=== PATIENT | female | born 1980 | race Asian ===

== ENCOUNTER 2016-10-13 16:16 | Emergency (ER) | payer OTHER ==
[2016-10-13] MEDS ORDERED: LIDOCAINE 2%-EPI 1:100000 20 ML MDV SUBQ STA (18:48)
[2016-10-13] MEDS ORDERED: LIDOCAINE 2%-EPI 1:100000 20 ML MDV ONE (19:03)
[2016-10-13] MEDS ORDERED: SULFAMETH/TRIMETH DS 800/160 MG TABLET PO STA (19:32)
--- NOTE | 2016-10-13 19:34 | ED Physician Documentation ---
History of Present Illness - Stated complaint Stated Complaint: CYST/BELLY BUTTON - Chief complaint Chief Complaint: Abd Pain - History obtained from History obtained from: Patient - History of Present Illness Timing: Today Pain level max: 4 Pain level now: 4 Improved by: nothing Worsened by: nothing - Additonal information Additional information: umbilicus swelling, redness. fluctuance. Review of Systems Constitutional: denies: Fever, Chills Musculoskeletal: denies: Neck pain, Back pain Neurologic: denies: Headache PD PAST MEDICAL HISTORY - Past Medical History Past Medical History: No - Past Surgical History Past Surgical History: Yes - Present Medications Home Medications: Ambulatory Orders Medication Instructions Recorded Confirmed Sulfamethox/Trimeth 800/160 1 each PO BID #14 tablet 10/13/16 [Bactrim Ds 800/160] - Allergies Allergies/Adverse Reactions: Allergies Allergy/AdvReac Type Severity Reaction Status Date / Time No Known Drug Allergies Allergy Verified 10/13/16 16:24 - Social History Does the pt smoke?: No Smoking Status: Never smoker PD ED PE NORMAL - Vitals Vital signs reviewed: Yes - General General: Alert and oriented X 3, No acute distress - Cardiac Cardiac: RRR - Respiratory Respiratory: No respiratory distress, Clear bilaterally - Abdomen Abdomen: Soft, Non distended, Other (induration, fluctuance 3x2cm area. NVI) - Derm Derm: Warm and dry - Neuro Neuro: Alert and oriented X 3 - Psych Psych: Normal mood, Normal affect Results - Vitals Vitals: Vital Signs - 24 hr 10/13/16 10/13/16 16:21 19:40 Temperature 36.7 C 36.5 C Heart Rate 73 66 Respiratory 18 18 Rate Blood Pressure 124/82 H 121/73 O2 Saturation 98 98 Oxygen O2 Source Room air - Labs Labs: Microbiology 10/13/16 19:30 Wound Culture - Preliminary Abscess Procedures - Abscess I&D (location) umbilicus Preparation: Confirmed with ultrasound, Lidocaine 2 %, With epi Incision: Incised with scalpel, Needle aspiration, Purulent drainage, Loculations broken, Irrigated, Packed, Culture obtained Other: Pt tolerated well PD MEDICAL DECISION MAKING - ED course Complexity details: reviewed results, re-evaluated patient, considered differential, d/w patient ED course: Patient is a 35-year-old female who presents to the emergency department with an umbilical abscess, this was drained in the emergency department and packed. Wound culture obtained. Will place on antibiotics and follow-up with her doctor. Patient counseled regarding signs and symptoms for which I believe and urgent re-evaluation would be necessary. Patient with good understanding of and agreement to plan and is comfortable going home at this time This document was made in part using voice recognition software. While efforts are made to proofread this document, sound alike and grammatical errors may occur. Departure - Departure Disposition: 01 Home, Self Care Clinical Impression: Abscess Condition: Good Instructions: ED Abscess IandD Follow-Up: Leoncio Gandhi MD [Primary Care Provider] - Within 3 Days Prescriptions: Sulfamethox/Trimeth 800/160 [Bactrim Ds 800/160] 1 each PO BID #14 tablet Comments: for recheck of your abscess. Take all antibiotics until gone. Discharge Date/Time: 10/13/16 19:51
[2016-10-13] MEDS ORDERED: SULFAMETH/TRIMETH DS 800/160 MG TABLET PO ONE (19:38)
[2016-10-13 19:40] VITALS: BP 121/73
== END 2016-10-13 19:51 | disposition home or self-care (01) ==
LOC: ED 16:16
DX: L02.216 Cutaneous abscess of umbilicus (principal)
CPT/HCPCS: 10060; 87070; 87205; 99283; A9270

== ENCOUNTER 2016-11-06 19:32 | Emergency (ER) | payer OTHER ==
--- NOTE | 2016-11-06 19:58 | ED Physician Documentation ---
PD HPI MHE - Stated complaint Stated Complaint: SI - Chief complaint Chief Complaint: MHE - History obtained from History obtained from: Patient - History of Present Illness Primary symptom: Suicidal ideation, Depression Timing - onset: How many weeks ago (she has been feeling more depressed for the past 2-3 weeks, with some suicidal ideation. Had stressful verbal interaction this morning and was more upset/ suicidal during the day today. This afternoon she thought of cutting her wrists and was to the point of having the knife pressed against her wrist, but says the "blade was too dull". Denies drugs, but did have 2 drinks of alcohol earlier today.) Contributing factors: Sig other, Work. No: Substance abuse - ETOH (infrequent alcohol use but has been more regular with drinking the past few weeks.), Substance abuse - drugs Similar symptoms before: Diagnosis (depression with overdose suicide attempt about 8-9 years ago, requiring medical hospitalization. Previously on antidepressants, not recent. 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 denies: Delusions, Anxiety Endocrine: denies: Weight loss (but has had poor appetite the past few weeks.) Immunocompromised: denies: Immunocompromised PD PAST MEDICAL HISTORY - Past Medical History Cardiovascular: None Respiratory: None Neuro: None Endocrine/Autoimmune: None - Past Surgical History Past Surgical History: Yes - Allergies Allergies/Adverse Reactions: Allergies Allergy/AdvReac Type Severity Reaction Status Date / Time No Known Drug Allergies Allergy Verified 10/13/16 16:24 - Living Situation Living Arrangement: reports: At home - Social History Does the pt smoke?: No Smoking Status: Never smoker Does the pt drink ETOH?: Yes ETOH Use: Other (recently for the past few weeks) Does the pt have substance abuse?: No - Family History Family history: reports: Non contributory PD ED PE NORMAL - Vitals Vital signs reviewed: Yes - General General: Alert and oriented X 3, Well developed/nourished, Other (conversant; a bit reluctant to talk about the recent stresses. ) - HEENT HEENT: Atraumatic, Pharynx benign - Neck Neck: Supple, no meningeal sign, No adenopathy, Thyroid normal - Cardiac Cardiac: RRR, No murmur - Respiratory Respiratory: Clear bilaterally - Abdomen Abdomen: Soft, Non tender - Back Back: No CVA TTP - Derm Derm: Normal color, Warm and dry - Extremities Extremities: No tenderness to palpate, Normal ROM s pain - Neuro Neuro: Alert and oriented X 3, No motor deficit, Normal speech - Psych Psych: No: Normal mood (depressed and somewhat flat) Results - Vitals Vitals: Vital Signs - 24 hr 11/06/16 11/06/16 19:34 21:17 Temperature 36.6 C Heart Rate 93 65 Respiratory 18 15 Rate Blood Pressure 147/80 H 141/86 H O2 Saturation 99 97 Oxygen O2 Source Room air - Labs Labs: Laboratory Tests 11/06/16 11/06/16 11/06/16 20:24 20:24 20:24 WBC 8.9 RBC 4.42 Hgb 12.9 Hct 38.1 MCV 86.3 MCH 29.2 MCHC 33.9 RDW 13.1 Plt Count 240 MPV 9.4 Neut # 6.1 Lymph # 1.9 O'Brien # 0.8 Eos # 0.1 Baso # 0.1 Absolute Nucleated RBC 0.00 Nucleated RBCs 0.0 Sodium 138 Potassium 3.7 Chloride 106 Carbon Dioxide 24 Anion Gap 8.0 BUN 11 Creatinine 0.7 Estimated GFR (MDRD) 96 Glucose 105 H Calcium 9.3 Total Bilirubin 0.6 AST 23 ALT 19 Alkaline Phosphatase 72 Total Protein 7.5 Albumin 4.3 Globulin 3.2 Albumin/Globulin Ratio 1.3 Lipase 19 L TSH 0.74 Salicylates < 6.0 Acetaminophen < 10 L Ethyl Alcohol < 5.0 PD MEDICAL DECISION MAKING - ED course Complexity details: re-evaluated patient (I feel the patient may be at risk for self harm, and she is willing for voluntary admission for initiating treatment. Has counseling planned for next week but is in stress/depressed currently. Not clearly able to contract for safety, feeling unsure of it. I feel hospitalization is appropriate. ), considered differential (she is feeling depressed and has suicidal ideation/plan. She is concerned about her impulse control. ), d/w patient, d/w income tax consultant (Case, psychiatry at [facility], who accepts transfer. ) Departure - Departure Clinical Impression: Suicidal ideation Depression Qualifiers: Depression Type: unspecified Qualified Code(s): F32.9 - Major depressive disorder, single episode, unspecified Condition: Stable Record reviewed to determine appropriate education?: Yes
[2016-11-06 20:30] LABS: BASOPHILS # (AUTO) 0.1 10^3/uL (0.0-0.1); BASOPHILS % (AUTO) 1.2 %; EOSINOPHILS # (AUTO) 0.1 10^3/uL (0.0-0.7); EOSINOPHILS % (AUTO) 0.8 %; HCT - HEMATOCRIT 38.1 % (37.0-47.0); HGB - HEMOGLOBIN 12.9 g/dL (12.0-16.0); LYMPHOCYTES # (AUTO) 1.9 10^3/uL (1.5-3.5); LYMPHOCYTES % (AUTO) 21.4 %; MEAN CORPUSCULAR HEMOGLOBIN 29.2 pg (27.0-31.0); MEAN CORPUSCULAR HGB CONC 33.9 g/dL (32.0-36.0); MEAN CORPUSCULAR VOLUME 86.3 fL (81.0-99.0); MEAN PLATELET VOLUME 9.4 fL (7.9-10.8); MONOCYTES # (AUTO) 0.8 10^3/uL (0.0-1.0); MONOCYTES % (AUTO) 8.7 %; NEUTROPHILS # (AUTO) 6.1 10^3/uL (1.5-6.6); NEUTROPHILS % (AUTO) 67.9 %; RED BLOOD COUNT 4.42 10^6/uL (4.20-5.40); RED CELL DISTRIBUTION WIDTH 13.1 % (12.0-15.0); UNCORRECTED WHITE BLOOD COUNT 8.9 x10^3/uL; WHITE BLOOD COUNT 8.9 x10^3/uL (4.8-10.8)
[2016-11-06 20:44] LABS: ALBUMIN/GLOBULIN RATIO 1.3 (1.0-2.2); BILIRUBIN,TOTAL 0.6 mg/dL (0.2-1.0); BUN - BLOOD UREA NITROGEN 11 mg/dL (6-20); CALCIUM 9.3 mg/dL (8.5-10.3); CARBON DIOXIDE - CO2 24 mmol/L (21-32); CHLORIDE 106 mmol/L (101-111); CREATININE 0.7 mg/dL (0.4-1.0); GFR - MDRD 96 (>89); GLUCOSE 105 mg/dL (70-100); LIPASE 19 U/L (22-51); POTASSIUM 3.7 mmol/L (3.5-5.0); SALICYLATE < 6.0 mg/dL; SODIUM 138 mmol/L (135-145); TOTAL PROTEIN 7.5 g/dL (6.7-8.2)
[2016-11-06 21:02] LABS: ACETAMINOPHEN < 10 ug/mL (10-30)
[2016-11-06 23:06] VITALS: BP 129/79
== END 2016-11-06 23:05 ==
LOC: ED 19:32
DX: F32.9 Major depressive disorder, single episode, unspecified (principal); R45.851 Suicidal ideations
CPT/HCPCS: 36415; 80053; 80307; 80320; 80329; 83690; 84443; 85025; 99283; 99284

== ENCOUNTER 2017-05-16 16:10 | Emergency (ER) | payer OTHER ==
[2017-05-16 16:56] LABS: ALBUMIN 4.4 g/dL (3.2-5.5); ALBUMIN/GLOBULIN RATIO 1.2 (1.0-2.2); ALKALINE PHOSPHATASE 70 IU/L (42-121); ALT ALANINE AMINOTRANSFERASE 26 IU/L (10-60); AST ASPARTATE AMINOTRANSFERASE 27 IU/L (10-42); BILIRUBIN,TOTAL 0.7 mg/dL (0.2-1.0); BUN - BLOOD UREA NITROGEN 9 mg/dL (6-20); CALCIUM 9.4 mg/dL (8.5-10.3); CARBON DIOXIDE - CO2 22 mmol/L (21-32); CHLORIDE 104 mmol/L (101-111); CREATININE 0.7 mg/dL (0.4-1.0); GFR - MDRD 96 (>89); GLUCOSE 93 mg/dL (70-100); LIPASE 18 U/L (22-51); SODIUM 137 mmol/L (135-145); TOTAL PROTEIN 8.1 g/dL (6.7-8.2)
[2017-05-16 16:59] LABS: ACETAMINOPHEN < 10 ug/mL (10-30); SALICYLATE < 6.0 mg/dL
[2017-05-16 17:30] LABS: MUDS CUTOFF CONCENTRATIONS CUTOFF CONC BELOW:
[2017-05-16 17:42] LABS: COCAINE SCREEN URINE NEGATIVE (NEGATIVE); METHAMPHETAMINES SCREEN, URINE NEGATIVE (NEGATIVE)
[2017-05-16 17:43] LABS: AMPHETAMINE SCREEN,URINE NEGATIVE (NEGATIVE); BENZODIAZEPINES SCREEN, URINE NEGATIVE (NEGATIVE); METHADONE SCREEN, URINE NEGATIVE (NEGATIVE); OPIATE SCREEN, URINE NEGATIVE (NEGATIVE); OXYCODONE SCREEN, URINE NEGATIVE (NEGATIVE); PROPOXYPHENE SCREEN, URINE NEGATIVE (NEGATIVE); TRICYCLIC ANTIDEPRESSANT,URINE NEGATIVE (NEGATIVE)
[2017-05-16 19:21] VITALS: BP 118/98
--- NOTE | 2017-05-16 19:49 | ED Physician Documentation ---
PD HPI MHE - Stated complaint Stated Complaint: SI - Chief complaint Chief Complaint: MHE - History obtained from History obtained from: Patient - History of Present Illness Primary symptom: Suicidal ideation (she got upset about some stress at work and started yelling and feeling very anxious. Was brought to counseling and was feeling calmer. She was talking with a friend after and was feeling very embarrassed about it and said to the effect of "I wish I were " but patient says it was more with regard to feeling very embarassed and was not feeling suicidal per se. Her friend notified the Chief, and patient brought here for evaluation (counseling services were closing). Patient says she does not feel suicidal per se and not at this time. Not feeling anxious right now.), Anxiety. No: Suicide attempt Timing - onset: Today Contributing factors: Work. No: Substance abuse - ETOH, Substance abuse - drugs Similar symptoms before: Has not had sx before (vague suicidal ideation in the past. Anxiety reactions in the past. No deep depression.) Review of Systems Constitutional: denies: Fever Nose: denies: Rhinorrhea / runny nose, Congestion Throat: denies: Sore throat Cardiac: denies: Chest pain / pressure, Palpitations Respiratory: denies: Dyspnea, Cough GI: denies: Abdominal Pain, Nausea, Vomiting, Diarrhea Skin: denies: Rash, Lesions PD PAST MEDICAL HISTORY - Past Medical History Cardiovascular: None Respiratory: None Neuro: None Endocrine/Autoimmune: None Psych: Depression - Past Surgical History Past Surgical History: Yes - Present Medications Home Medications: Ambulatory Orders Medication Instructions Recorded Confirmed Multivitamin [Multivitamins] 1 each PO DAILY 05/16/17 05/16/17 diphenhydrAMINE [Benadryl] 25 - 50 mg PO QPM PRN #30 capsule 05/16/17 - Allergies Allergies/Adverse Reactions: Allergies Allergy/AdvReac Type Severity Reaction Status Date / Time No Known Drug Allergies Allergy Verified 05/16/17 16:21 - Social History Does the pt smoke?: No Smoking Status: Never smoker Does the pt drink ETOH?: Yes Does the pt have substance abuse?: No - Immunizations Immunizations are current?: Yes - POLST Patient has POLST: No PD ED PE NORMAL - Vitals Vital signs reviewed: Yes - General General: Alert and oriented X 3, Well developed/nourished, Other (seems slightly anxious but quite pleasant and interactions well. ) - Cardiac Cardiac: RRR, No murmur - Respiratory Respiratory: Clear bilaterally - Derm Derm: Normal color, Warm and dry - Neuro Neuro: Alert and oriented X 3, No motor deficit, Normal speech - Psych Psych: Normal affect. No: Normal mood (not seeming depressed. Slightly anxious. ) Results - Vitals Vitals: Oxygen O2 Source Room air - Labs Labs: Laboratory Tests 05/16/17 05/16/17 16:35 Unknown Sodium 137 Potassium 3.9 Chloride 104 Carbon Dioxide 22 Anion Gap 11.0 BUN 9 Creatinine 0.7 Estimated GFR (MDRD) 96 Glucose 93 Calcium 9.4 Total Bilirubin 0.7 AST 27 ALT 26 Alkaline Phosphatase 70 Total Protein 8.1 Albumin 4.4 Globulin 3.7 Albumin/Globulin Ratio 1.2 Lipase 18 L Salicylates < 6.0 Urine Opiates Screen NEGATIVE Ur Oxycodone Screen NEGATIVE Urine Methadone Screen NEGATIVE Ur Propoxyphene Screen NEGATIVE Acetaminophen < 10 L Ur Barbiturates Screen NEGATIVE Ur Tricyclics Screen NEGATIVE Ur Phencyclidine Scrn NEGATIVE Ur Amphetamine Screen NEGATIVE U Methamphetamines Scrn NEGATIVE U Benzodiazepines Scrn NEGATIVE Urine Cocaine Screen NEGATIVE U Cannabinoids Screen NEGATIVE Ethyl Alcohol < 5.0 PD MEDICAL DECISION MAKING - ED course Complexity details: considered differential (here with her Chief and she says she did not mean the statement about wanting to be , was more of a stress comment to the "feeling ahsamed" about the incident. Denies suicidal ideation. Her chief says the patient will be staying with a friend monico and they have counseling planned again in the morning. ), d/w patient Departure - Departure Disposition: 01 Home, Self Care Clinical Impression: Stress reaction, Suicidal ideation Condition: Stable Record reviewed to determine appropriate education?: Yes Prescriptions: diphenhydrAMINE [Benadryl] 25 - 50 mg PO QPM PRN #30 capsule PRN Reason: Insomnia Comments: Drink lots of fluids. No alcohol use. Benadryl 25-50 mg at night if needed for sleep. He could also try melatonin 3 mg at night for sleep as well. Follow -up with counseling in the morning. Call the crisis line overnight if you need to talk to someone. Return as needed. Discharge Date/Time: 05/16/17 20:22
[2017-05-16] MEDS ORDERED: diphenhydrAMINE 25 MG CAPSULE PO STA (20:12)
== END 2017-05-16 20:22 | disposition home or self-care (01) ==
LOC: ED 16:10
DX: F43.9 Reaction to severe stress, unspecified (principal); R45.851 Suicidal ideations
CPT/HCPCS: 36415; 80053; 80306; 80307; 80320; 80329; 83690; 99283; A9270

== ENCOUNTER 2017-10-01 08:33 | Emergency (ER) | payer OTHER ==
--- NOTE | 2017-10-01 09:30 | ED Physician Documentation ---
PD HPI SKIN - Stated complaint Stated Complaint: ABD PX - Chief complaint Chief Complaint: Wound - History obtained from History obtained from: Patient PD PAST MEDICAL HISTORY - Past Medical History Past Medical History: Yes Cardiovascular: None Respiratory: None Endocrine/Autoimmune: None Psych: Depression - Past Surgical History Past Surgical History: Yes - Present Medications Home Medications: Ambulatory Orders Medication Instructions Recorded Confirmed Multivitamin [Multivitamins] 1 each PO DAILY 05/16/17 05/16/17 diphenhydrAMINE [Benadryl] 25 - 50 mg PO QPM PRN #30 capsule 05/16/17 Mupirocin 1 applic TP TID #15 oint...g. 10/01/17 Sulfamethox/Trimeth 800/160 1 each PO BID #14 tablet 10/01/17 [Bactrim Ds 800/160] - Allergies Allergies/Adverse Reactions: Allergies Allergy/AdvReac Type Severity Reaction Status Date / Time No Known Drug Allergies Allergy Verified 05/16/17 16:21 - Social History Does the pt smoke?: No Smoking Status: Never smoker Does the pt drink ETOH?: Yes Does the pt have substance abuse?: No - Immunizations Immunizations are current?: Yes - POLST Patient has POLST: No Results - Vitals Vitals: Oxygen O2 Source Room air - Labs Labs: Microbiology 10/01/17 09:30 Wound Culture - Preliminary Abscess PD MEDICAL DECISION MAKING - ED course Complexity details: considered differential (given the recurrence in same site, I think the cyst/scar of it would best be excised after the infection is gone.) , d/w patient - Sepsis Event Vital Signs: Oxygen O2 Source Room air Departure - Departure Disposition: 01 Home, Self Care Clinical Impression: Abscess of umbilicus Condition: Stable Record reviewed to determine appropriate education?: Yes Instructions: ED Staph Infec Abx Tx Only Follow-Up: IMER HORTON DO [Primary Care Provider] - David Killian MD [Provider Admit Priv/Credential] - Prescriptions: Mupirocin 1 applic TP TID #15 oint...g. Sulfamethox/Trimeth 800/160 [Bactrim Ds 800/160] 1 each PO BID #14 tablet Comments: This sounds like a recurring abscess likely because of the scar tissue left from the initial infection. Will treat the current infection with antibiotics orally and topically. Presume with this will clear it again for now. When you see Dr. Killian in the office next week, he might want to excise the scar tissue in that area so there is not a hiding place for the germs to come out recurrently. See what he thinks. Discharge Date/Time: 10/01/17 10:13
[2017-10-01] MEDS ORDERED: SULFAMETH/TRIMETH DS 800/160 MG TABLET PO STA (09:50)
[2017-10-01 10:14] VITALS: BP 117/76
== END 2017-10-01 10:13 | disposition home or self-care (01) ==
LOC: ED 08:33
DX: L02.216 Cutaneous abscess of umbilicus (principal)
CPT/HCPCS: 87070; 87205; 99283; A9270; 81599

== ENCOUNTER 2017-10-18 10:25 | Day surgery (SDC) | payer OTHER ==
[~2017-10-18 10:25] MED LIST: BUPIVACAINE 0.5% PF 30 ML VIAL ONE
[2017-10-18] MEDS ORDERED: ceFAZolin 2 GM/50 ML 2 GM/50 ML BAG IV ONE (10:47)
[2017-10-18] MEDS ORDERED: LACTATED RINGERS 1,000 ML IV ONE ×2 (10:49→14:44)
[2017-10-18 11:59] LABS: HCG UR QUAL NEGATIVE
--- NOTE | 2017-10-18 13:42 | ANESTHESIA ---
Pre-Anesthesia VS, & Labs - Diagnosis Umbilical hernia, chronic umbilical wound - Procedure Umbilical hernia repair, excise chronic umbilical cyst Vital Signs: Temp Pulse Resp BP Pulse Ox 36.2 C L 16 121/68 98 10/18/17 10:49 10/18/17 10:49 10/18/17 10:49 10/18/17 10:49 Height 5 ft 4 in Weight (kg) 84.4 kg Body Mass Index 29.2 - NPO >8 hours - Is Patient ?: No Home Medications and Allergies Home Medications: Ambulatory Orders Medication Instructions Recorded Confirmed Multivitamin [Multivitamins] 1 each PO DAILY 05/16/17 05/16/17 diphenhydrAMINE [Benadryl] 25 - 50 mg PO QPM PRN #30 capsule 05/16/17 Mupirocin 1 applic TP TID #15 oint...g. 10/01/17 Sulfamethox/Trimeth 800/160 1 each PO BID #14 tablet 10/01/17 [Bactrim Ds 800/160] Sertraline HCl [Zoloft] 150 cap ORAL DAILY 10/18/17 10/18/17 Allergies/Adverse Reactions: Allergies Allergy/AdvReac Type Severity Reaction Status Date / Time No Known Drug Allergies Allergy Verified 05/16/17 16:21 Anes History & Medical History - Anesthetic History Anesthesia Complications: reports: Post-Operative Nausea/Vomiting Family history of Malignant Hyperthermia: Denies - Airway/Dental Dental: WNL Neck Mobility: Normal Mallampati classification: II Thyromental Distance: greater than 6 cm - Medical History Cardiovascular: reports: None Pulmonary: reports: None Gastrointestinal: reports: None, GERD Urinary: reports: None Neuro: reports: Motion sickness, Other (Depression) Musculoskeletal: reports: None Endocrine/Autoimmune: reports: None Skin: reports: None Smoking Status: Never smoker Psychosocial: reports: Depression - Surgical History General: Other (Abdominalplasty, liposuction, umbilical hernia repair) Exam General: Alert, Oriented x3 Respiratory: Lungs clear Cardiovascular: Regular rate Mental/Cognitive Status: Alert/Oriented X3 Plan Anesthesia Type: General Consent for Operative Procedure(s) Verified and Reviewed: Yes Code Status: Attempt Resuscitation ASA classification: 2-Mild systemic disease Is this case an emergency?: No
--- NOTE | 2017-10-18 13:43 | ANESTHESIA ---
Pre-Anesthesia VS, & Labs - Diagnosis umbilical hernia, chronic umbilical wound - Procedure Umbilical hernia repair, excise chronic umbilical infection Vital Signs: Temp Pulse Resp BP Pulse Ox 36.2 C L 16 121/68 98 10/18/17 10:49 10/18/17 10:49 10/18/17 10:49 10/18/17 10:49 Height 5 ft 4 in Weight (kg) 84.4 kg Body Mass Index 29.2 - Is Patient ?: No - Lab Results Lab results reviewed: No Home Medications and Allergies Home Medications: Ambulatory Orders Medication Instructions Recorded Confirmed Multivitamin [Multivitamins] 1 each PO DAILY 05/16/17 05/16/17 diphenhydrAMINE [Benadryl] 25 - 50 mg PO QPM PRN #30 capsule 05/16/17 Mupirocin 1 applic TP TID #15 oint...g. 10/01/17 Sulfamethox/Trimeth 800/160 1 each PO BID #14 tablet 10/01/17 [Bactrim Ds 800/160] Sertraline HCl [Zoloft] 150 cap ORAL DAILY 10/18/17 10/18/17 Allergies/Adverse Reactions: Allergies Allergy/AdvReac Type Severity Reaction Status Date / Time No Known Drug Allergies Allergy Verified 05/16/17 16:21 Anes History & Medical History - Anesthetic History Anesthesia Complications: reports: No previous complications Family history of Anesthesia Complications: Denies Family history of Malignant Hyperthermia: Denies - Airway/Dental Dental: WNL Neck Mobility: Normal Mallampati classification: II Thyromental Distance: greater than 6 cm - Medical History Cardiovascular: reports: None Pulmonary: reports: None Gastrointestinal: reports: None Urinary: reports: None Neuro: reports: None Musculoskeletal: reports: None Endocrine/Autoimmune: reports: None Blood Disorders: reports: None Skin: reports: None Smoking Status: Never smoker Psychosocial: reports: Depression Exam General: Oriented x3 Respiratory: Lungs clear, Normal breath sounds Cardiovascular: Regular rate Extremities: No clubbing, No edema Neurological: Normal speech Mental/Cognitive Status: Alert/Oriented X3 Cognitive Status: Within normal limits Plan Anesthesia Type: General Consent for Operative Procedure(s) Verified and Reviewed: Yes Code Status: Attempt Resuscitation ASA classification: 2-Mild systemic disease Is this case an emergency?: No
[2017-10-18] MEDS ORDERED: SCOPOLAMINE PATCH TOP ONE (13:49)
[2017-10-18] MEDS ORDERED: BUPIVACAINE 0.5% PF 30 ML VIAL INFIL ONE ×2 (14:41)
[2017-10-18] MEDS ORDERED: PROPOFOL 200 MG/20 ML VIAL IVP ONE (15:20)
[2017-10-18] MEDS ORDERED: MIDAZOLAM 2 MG/2 ML VIAL IVP ONE (15:20)
[2017-10-18] MEDS ORDERED: KETOROLAC 30 MG/ML VIAL IVP ONE (15:20)
[2017-10-18] MEDS ORDERED: LIDOCAINE-MPF 2% 5 ML VIAL IM ONE (15:20)
[2017-10-18] MEDS ORDERED: DEXAMETHASONE 4 MG/ML VIAL IVP ONE (15:20)
[2017-10-18] MEDS ORDERED: fentaNYL 100 MCG/2 ML VIAL IVP ONE (15:20)
[2017-10-18] MEDS ORDERED: ONDANSETRON 4 MG/2 ML VIAL IVP ONE (15:20)
--- NOTE | 2017-10-18 15:47 | OPERATIVE REPORT ---
Operative Report - General Planned Procedure: Excision umbilical cyst and umbilical herniorrhaphy Pre-Op Diagnosis: Umbilical cyst and umbilical hernia Procedure Performed: Excision umbilical abscess and umbilical herniorrhaphy Post Op Diagnosis: Umbilical abscess and umbilical hernia - Procedure Note Primary Surgeon: David Killian MD Anesthesia Provider: Sina Rubi CRNA Anesthesia Technique: General LMA, Local (30 mL 1/2% marcaine) IV Fluids (mL): 400 Estimated Blood Loss (mL): 10 Complications: None. - Other Other Information/Narrative: OPERATIVE DESCRIPTION/REPORT: After verbal and written informed consent was obtained detailing the risks of infection, bleeding requiring transfusion with its risks, nerve injury, and , and after I met with the patient confirming the surgery and the site of the surgery, the patient was brought to the operative suite and placed supine on the operating table. Great care was taken to avoid pressure points to prevent pressure necrosis or nerve injury. Monitoring devices were applied along with TEDs and pneumatic compressive stockings (to prevent DVT). The patient received preoperative antibiotics for surgical prophylaxis. Sina Rubi CRNA sedated and anethetized the patient for the entire procedure. The patient was prepped and draped in the usual sterile manner. With the patient draped my initials were clearly visible. A "time in" then confirmed that the paitient was identified with 3 identifiers (name, birthdate and medical record number), the history and physical was in the chart, the signed consent confirming the procedure was in the chart, the patient was in the correct position, the aforementioned prophylactic measures were in place or given, we had the correct personel and equipment to complete the procedure and that anesthesia, surgery and nursing were given an opportunuty to express any concerns. With the agreement of everyone in the room, we proceeded with the operation. After injecting the area with 1/2% marcaine, an elliptical incision was made using a 15 blade scalpel in order to excise the anticipated cyst. This also was able to keep well clear of the draining site at the midpoint of her umbilicus. This incision was then taken down to the fascial defect with Bovie electrocautery taking great care not to get into the cyst. In this manner, I was able to excise the cyst as well as get down to the fascial defect. The cyst was excised and taken to the back table to be opened later. With the cyst out of the way I was able to see multiple Ethibond sutures which I endeavored to remove all traces. I turned my attention to the cyst on the back table. I opened it with a scalpel expecting to find a foreign body (stitch) but instead finding extremely foul smelling brownish thin fluid. Seeing and smelling that fluid, I changed my gloves and returned to the umbilical repair convinced not to use mesh. I opted not to culture the fluid as the now abscess was removed in its entirety without any spillage. The fascia was then approximated using interrupted 0 PDS sutures. Seven sutures were required and the approximation was done horizontally rather than vertically. The wound was copiously irrigated using sterile saline. Meticulous hemostasis was obtained using Bovie electrocautery. The subcutaneous tissues were approximated using 3-0 Vicryl. The skin incision was approximated with a running 4-0 Monocryl. At this point a time out was performed that confirmed that all the counts were correct, the procedure that was performed, the blood loss, the urine output, the IV fluids administered, and the patients condition. Having tolerated the procedure well, the patient was subsequently taken to short stay in good and stable condition.
[2017-10-18] MEDS ORDERED: oxyCOD/ACETAMIN 5 MG/325 MG TABLET PO ONE (16:35)
[2017-10-18 16:46] VITALS: BP 133/68
== END 2017-10-18 10:26 | disposition home or self-care (01) ==
LOC: SDS 10:25
PROVIDERS: ATTEND Surgery
PROC: 0WBF0ZZ Excision of Abdominal Wall, Open Approach (ICD-10-PCS; principal; 2017-10-18 12:00)
DX: L02.216 Cutaneous abscess of umbilicus (principal); L72.0 Epidermal cyst; K42.9 Umbilical hernia without obstruction or gangrene; Z87.891 Personal history of nicotine dependence; Z98.890 Other specified postprocedural states
CPT/HCPCS: 11406; 12032; 81025; A9270; J0690; J3490; J7120; 88304